=== PATIENT | male | born 1945 | race Caucasian/White ===

== ENCOUNTER → 2019-02-06 | Outpatient (CLI) | payer OTHER | LOC: MERGE 13:56 → FIMAGING 13:56 | PROVIDERS: ATTEND Surgery | DX: C83.30 Diffuse large B-cell lymphoma, unspecified site (principal); Z95.828 Presence of other vascular implants and grafts ==

== ENCOUNTER 2019-03-07 10:48 | Inpatient (IN) | payer OTHER | END 2019-03-19 12:21 | LOC: F2N 03-09 07:45 → F1N 03-16 12:27 ==